=== PATIENT | female | born 1980 | race Hispanic/Latino ===

== ENCOUNTER 2022-03-27 17:33 | Emergency (ER) | payer SELFPAY ==
--- NOTE | 2022-03-27 17:52 | ER ---
Nurse's Notes [facility] Name: Wendi Sullivan Age: 41 yrs Sex: Female : 1980 Arrival Date: 03/27/2022 Time: 17:37 Bed Waiting Private MD: Diagnosis: Opioid abuse;Heroin overdose Presentation: 03/27 17:43 Chief complaint: EMS states: pt was found at [employer], toned out for possible iw overdose, EMS gave 1 mg narcan intranasally , pt A\T\O X 4 upon arrival to ER, pt states they want to leave. 17:44 Coronavirus screen: At this time, the client does not indicate any symptoms associated iw with coronavirus-19. Ebola Screen: Patient negative for fever greater than or equal to 101.5 degrees Fahrenheit, and additional compatible Ebola Virus Disease symptoms Patient denies exposure to infectious person. Patient denies travel to an Ebola-affected area in the 21 days before illness onset. No symptoms or risks identified at this time. Initial Sepsis Screen: Does the patient meet any 2 criteria? No. Patient's initial sepsis screen is negative. Does the patient have a suspected source of infection? No. Patient's initial sepsis screen is negative. Risk Assessment: Do you want to hurt yourself or someone else? Patient reports no desire to harm self or others. Onset of symptoms was March 27, 2022. 17:44 Method Of Arrival: EMS: [facility] iw 17:44 Acuity: ALVARO 3 iw Historical: - Allergies: 17:45 No Known Allergies; iw - Home Meds: 17:45 None [Active]; iw - PMHx: 17:45 None; iw Assessment: 17:51 Reassessment: ERP in triage assessing patient. Pt refusing to stay and be treated. ERP ld1 attempting to persuade pt to stay. Pt eloped 1 minute after conversation in triage. Vital Signs: 17:43 BP 146 / 99; Pulse 105; Resp 16 S; Temp 97.2; Pulse Ox 100% on R/A; iw ED Course: 17:37 Patient arrived in ED. iw 17:45 Triage completed. iw 17:46 Arthur Taylor DO is Attending Physician. ms3 17:50 Jose Roberto Higuera DO is Referral Physician. ms3 Administered Medications: No medications were administered Outcome: 17:45 Discharged to 17:52 Discharge ordered by . ms3 17:52 Condition: unchanged ld1 17:53 Patient left the ED. ld1 Signatures: Valerie Red RN RN Arthur Taylor DO DO ms3 Felicitas Chase, ROSALBA RN ld1
[2022-03-27 18:12] VITALS: BP 146/99; TEMP 97.2; O2SAT 100
== END 2022-03-27 17:53 | disposition home or self-care (01) ==
LOC: ER 17:33
DX: Z02.9 Encounter for administrative examinations, unspecified (principal)